=== PATIENT | male | born 1995 | race African-American/Black ===

== ENCOUNTER 2017-04-11 15:50 | Emergency (ER) | payer SELFPAY ==
[2017-04-11 16:00] VITALS: BP 129/80
[2017-04-11] MEDS ORDERED: TETRACAINE HCL 0.5% OPH SOLN 2 ML OS ONE (16:56)
[2017-04-11] MEDS ORDERED: TETRACAINE HCL 0.5% OPH SOLN 2 ML ONE (16:59)
--- NOTE | 2017-04-11 17:19 | ER Document Report ---
HPI - HPI Pain Level: 3 Notes: Patient is a 22-year-old male with the ED complaining of intermittent left eye redness for 3 weeks. Patient states that his eye became red again this morning. He does have some irritation to it, but declines any discharge or sharp pain. Patient denies a foreign body in the eye. No recent illness. He denies any changes in his vision. 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 Patient does wear contacts which has been leaving out with his eye is red. Patient states that he does have little to no photophobia. He is still able to move the eye around without any difficulties or pain. Denies any headache, fever, URI, ear pain, dizziness , nasal congestion/discharge, sore throat, chest pain, palpitations, syncope, cough, shortness breath, dyspnea, wheezing, abdominal pain, nausea/vomiting/ diarrhea, dysuria, urethral discharge, joint pains, or rash. Denies any daily meds. Denies any drug allergies. Denies any significant past medical history. - ROS Notes: REVIEW OF SYSTEMS: CONSTITUTIONAL : Denies fever, chills, or sweats. Denies recent illness. EENT: see hpi CARDIOVASCULAR: Denies chest pain. Denies palpitations or racing or irregular heart beat. Denies ankle edema. RESPIRATORY: Denies cough, cold, or chest congestion. Denies shortness of breath, difficulty breathing, or wheezing. GASTROINTESTINAL: Denies abdominal pain or distention. Denies nausea, vomiting , or diarrhea. Denies blood in vomitus, stools, or per rectum. Denies black, tarry stools. Denies constipation. GENITOURINARY: Denies difficulty urinating, painful urination, burning, frequency, blood in urine, or discharge. MUSCULOSKELETAL: Denies back or neck pain or stiffness. Denies joint pain or swelling. SKIN: Denies rash, lesions or sores. NEUROLOGICAL: Denies confusion or altered mental status. Denies passing out or loss of consciousness. Denies dizziness or lightheadedness. Denies headache. Denies weakness or paralysis or loss of use of either side. Denies problems with gait or speech. Denies sensory loss, numbness, or tingling. Denies seizures. PSYCHIATRIC: Denies anxiety or stress. Denies depression, suicidal ideation, or homicidal ideation. ALL OTHER SYSTEMS REVIEWED AND NEGATIVE. Dictation was performed using [employer] voice recognition software - [employer] Skin Color: Normal Past Medical History - Social History Smoking Status: Unknown if Ever Smoked Family History: Reviewed & Not Pertinent Patient has suicidal ideation: No Patient has homicidal ideation: No Renal/ Medical History: Denies: Hx Peritoneal Dialysis Vertical Provider Document - CONSTITUTIONAL Agree With Documented VS: Yes Notes: PHYSICAL EXAMINATION: GENERAL: Well-appearing, well-nourished and in no acute distress. HEAD: Atraumatic, normocephalic. EYES: Pupils equal round and reactive to light, extraocular movements intact, sclera anicteric, Left conjunctiva injected. No orbital cellulitis or discharge. No obvious abrasion/laceration/ulceration on flourescein/wood's lamp exam. Non-tender with movement. Eye irrigated and lid everted/wiped. No pupillary changes in shape. ENT: EAC clear b/l. TM's intact b/l without erythema, fluid, or perforation. Nares patent and without discharge. oropharynx clear without exudates. No tonsilar hypertrophy or erythema. Moist mucous membranes. No sinus tenderness. NECK: Normal range of motion, supple without lymphadenopathy LUNGS: Breath sounds clear to auscultation bilaterally and equal. No wheezes rales or rhonchi. HEART: Regular rate and rhythm without murmurs, rubs, gallops PSYCH: Normal mood, normal affect. SKIN: Warm, Dry, normal turgor, no rashes or lesions noted. - INFECTION CONTROL TRAVEL OUTSIDE OF THE [place] IN LAST 30 DAYS: No - RESPIRATORY O2 Sat by Pulse Oximetry: 96 Course - Re-evaluation Re-evalutation: 04/11/17 17:24 Patient is an afebrile, well-hydrated, 22-year-old male with suspected iritis to the left eye. Vitals are stable. PE otherwise unremarkable for any retained corneal related foreign body, deep space infection including orbital cellulitis or abscess, acute glaucoma, penetrating globe injury, retinal detachment, meningitis, viral/bacterial keratitis. Patient symptomatology matched closely with iritis along with physical exam. Iritis warrants an urgent consult ophthalmology in the next 1-2 days. I will send him home with Polytrim eyedrops along with ketorolac eyedrops to use as directed. Avoid use of contacts. Wash hands regularly and do not scratch the eye. Conservative measures otherwise for symptoms. Return to the ED with any worsening/ concerning symptoms as reviewed. Patient is in agreement. - Vital Signs Vital signs: Temp Pulse Resp BP Pulse Ox 97.5 F 55 L 16 129/80 H 96 04/11/17 15:59 04/11/17 15:59 04/11/17 15:59 04/11/17 15:59 04/11/17 15:59 Discharge - Discharge Clinical Impression: Iritis of left eye Condition: Stable Disposition: HOME, SELF-CARE Instructions: Eyedrop Use ([facility]) Additional Instructions: Wash hands regularly Do not scratch or touch your eyes Avoid use of contacts Use eyedrops as directed Tylenol/ibuprofen as needed It is important that you recheck with an paper slitter in the next 1-2 days. Return to the ED with any worsening vision, eye pain, headaches, fever, discharge, changes in vision, spots in vision, chest pain, palpitations, syncope , trouble breathing, shortness of breath, cough, abdominal pain, nausea/vomiting /diarrhea, urethral discharge, joint pains, or any other worsening/concerning symptoms otherwise as needed.Iritis The examination of your eye shows iritis, an inflammation of the iris of the eye. This is not an infection, but it can leave bands of scar tissue in the eye if untreated. The usual symptoms of iritis are deep eye pain, sensitivity to light, blurred vision, and headache. Cortisone drops and pupil-dilating medication are used to treat iritis. Follow-up examination by an paper slitter (physician video conference specialist) is often necessary. If there is a significant worsening of your condition -- such as severe pain, nausea and vomiting, or decreasing vision -- call the doctor or return for re-evaluation. Prescriptions: Ketorolac Tromethamine 0.45% [Acuvail 0.45% Oph Soln 0.4 ml/Dropperette] 1 drop OS QID PRN #1 bottle PRN Reason: Polymyxin B Sulf/Trimethoprim [Polytrim Eye Drops] 2 drop OD Q6H #10 ml Forms: Elevated Blood Pressure Referrals: CELSO LANE DO [ACTIVE STAFF] - Follow up as needed
== END 2017-04-11 17:50 | disposition home or self-care (01) ==
LOC: ER 15:50
DX: H20.9 Unspecified iridocyclitis (principal); H57.12 Ocular pain, left eye
CPT/HCPCS: 99283

== ENCOUNTER 2017-08-01 10:34 | Emergency (ER) | payer BC ==
[2017-08-01 10:39] VITALS: BP 132/80
[2017-08-01] MEDS ORDERED: KETOROLAC TROMETHAMINE 0.45% 4 DROP/0.4 ML DROPERETTE OD ONE (11:42)
[2017-08-01] MEDS ORDERED: BESIFLOXACIN HCL 0.6% OPH SUSP 5 ML BOTTLE OD ONE (11:42)
[2017-08-01] MEDS ORDERED: TETRACAINE HCL 0.5% OPH SOLN 2 ML OD ONE (11:42)
--- NOTE | 2017-08-01 11:43 | ER Document Report ---
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 Has contacts in. No hx ulcer. No drainage. Associated Symptoms: None Exacerbated by: Denies Relieved by: Denies Similar symptoms previously: Yes Recently seen / treated by doctor: No - ROS ROS below otherwise negative: Yes Systems Reviewed and Negative: Yes All other systems reviewed and negative - DERM Skin Color: Normal Past Medical History - General Information source: Patient - Social History Smoking Status: Never Smoker Frequency of alcohol use: None Drug Abuse: None Lives with: Family Family History: Reviewed & Not Pertinent Patient has suicidal ideation: No Patient has homicidal ideation: No - Medical History Medical History: Negative Renal/ Medical History: Denies: Hx Peritoneal Dialysis Surgical Hx: Negative Vertical Provider Document - CONSTITUTIONAL Agree With Documented VS: Yes Exam Limitations: No Limitations General Appearance: No Apparent Distress - INFECTION CONTROL TRAVEL OUTSIDE OF THE [place] IN LAST 30 DAYS: No - HEENT HEENT: Conjuctival Injection - right, no limbic flare, ant. chamber clear. tiny roung corneal defect with fluorescein uptake at 7 oclock, Normocephalic - NECK Neck: Supple - RESPIRATORY O2 Sat by Pulse Oximetry: 97 - NEURO Level of Consciousness: Awake, Alert, Appropriate Course - Vital Signs Vital signs: Temp Pulse Resp BP Pulse Ox 97.5 F 58 L 16 132/80 H 97 08/01/17 10:37 08/01/17 10:37 08/01/17 10:37 08/01/17 10:37 08/01/17 10:37 Discharge - Discharge Clinical Impression: corneal ulcer versus abrasion Condition: Good Disposition: HOME, SELF-CARE Instructions: Ketorolac Tromethamine Eye Drops ([facility]), Corneal Abrasion ([facility]), Quinolone Antibiotics ([facility]) Additional Instructions: no contact in right eye see dr helms at 2:15 pm today besivance 1 drop right eye every 8 hours acular 1 drop right eye every 8 hours Please complete the patient satisfaction survey if you get one, and return it.. If you do not receive a survey, then you can go to the [facility] website, [email or web address] and place your comments about your very good care. Thank you very much. It was a pleasure being your medical provider today. Forms: Return to Work Referrals: BEVERLY HELMS MD [ACTIVE STAFF] - 08/01/17
== END 2017-08-01 12:15 | disposition home or self-care (01) ==
LOC: ER 10:34
DX: H57.11 Ocular pain, right eye (principal); H57.8 Other specified disorders of eye and adnexa
CPT/HCPCS: 99283

== ENCOUNTER 2017-12-11 15:47 | Emergency (ER) | payer BC ==
[2017-12-11] MEDS ORDERED: OXYCODONE-ACETAMINOPHEN 5-325 MG TABLET PO ONE (17:06)
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
[2017-12-11] MEDS ORDERED: HYDROMORPHONE HCL INJ/PF 2 MG/ML AMPULE IM ONE (18:05)
[2017-12-11 18:32] VITALS: BP 129/77
== END 2017-12-11 18:42 | disposition home or self-care (01) ==
LOC: ER 15:47
DX: S02.80XA Fracture of other specified skull and facial bones, unspecified side, initial encounter for closed fracture (principal); Y04.2XXA Assault by strike against or bumped into by another person, initial encounter
CPT/HCPCS: 99283; 96372; 70486; J1170

== ENCOUNTER 2017-12-11 19:12 | Emergency (ER) | payer BC ==
[2017-12-11] MEDS ORDERED: ONDANSETRON 4 MG TAB.RAPDIS PO ONE (20:27)
[2017-12-11] MEDS ORDERED: ONDANSETRON ODT 4 MG TAB (6 TAB/ER DISP) PO PRN ×2 (20:27→21:41)
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
[2017-12-11 22:04] VITALS: BP 139/72
== END 2017-12-11 22:05 | disposition home or self-care (01) ==
LOC: ER 19:12
DX: S09.90XA Unspecified injury of head, initial encounter (principal); R11.2 Nausea with vomiting, unspecified; X58.XXXA Exposure to other specified factors, initial encounter
CPT/HCPCS: 99284; 70450; S0119

== ENCOUNTER 2018-05-27 15:01 | Emergency (ER) | payer BC ==
[2018-05-27 15:08] VITALS: BP 141/90
[2018-05-27] MEDS ORDERED: HYDROCODONE/ACETAMINOPHEN 5-325 MG TABLET PO ONE (15:30)
[2018-05-27] MEDS ORDERED: PENICILLIN V POTASSIUM 500 MG TABLET PO ONE (15:30)
--- NOTE | 2018-05-27 15:34 | ER Document Report ---
HPI - HPI Patient complains to provider of: Dental infection Onset: Last week Onset/Duration: Worse Quality of pain: Achy Pain Level: 3 Context: Patient complains of dental pain for the past week that worsened over the past 3 days. Patient denies any fever or vomiting. Associated Symptoms: Other - Dental pain. denies: Fever Exacerbated by: Denies Relieved by: Denies Similar symptoms previously: Yes Recently seen / treated by doctor: No - ROS ROS below otherwise negative: Yes Systems Reviewed and Negative: Yes All other systems reviewed and negative - CONSTITUTIONAL Constitutional: DENIES: Fever - GASTROINTESTINAL Gastrointestinal: DENIES: Nausea, Patient vomiting - DERM Skin Color: Normal Skin Problems: None Past Medical History - General Information source: Patient - Social History Smoking Status: Never Smoker Frequency of alcohol use: None Drug Abuse: None Occupation: [employer] Lives with: Family Family History: Reviewed & Not Pertinent - Medical History Medical History: Negative Renal/ Medical History: Denies: Hx Peritoneal Dialysis Surgical Hx: Negative - Immunizations Immunizations up to date: Yes Hx Diphtheria, Pertussis, Tetanus Vaccination: Yes Vertical Provider Document - CONSTITUTIONAL Agree With Documented VS: Yes Exam Limitations: No Limitations General Appearance: WD/WN, No Apparent Distress - INFECTION CONTROL TRAVEL OUTSIDE OF THE [place] IN LAST 30 DAYS: No - HEENT HEENT: Atraumatic, Normocephalic Mouth Diagram: 1 - Dental decay, small abscess to gingiva - NECK Neck: Normal Inspection, Supple. negative: Lymphadenopathy-Left, Lymphadenopathy-Right - RESPIRATORY Respiratory: No Respiratory Distress - MUSCULOSKELETAL/EXTREMETIES Musculoskeletal/Extremeties: MAEW - NEURO Level of Consciousness: Awake, Alert, Appropriate Motor/Sensory: No Motor Deficit - DERM Integumentary: Warm, Dry Course - Vital Signs Vital signs: Temp Pulse Resp BP Pulse Ox 98.4 F 52 L 16 141/90 H 99 05/27/18 15:07 05/27/18 15:07 05/27/18 15:07 05/27/18 15:07 05/27/18 15:07 Procedures - Incision and Drainage Right Type: Simple Incision Method: Incision made with needle Amount/type of drainage: Small amount of purulent drainage Mouth/Teeth picture: 1 - Abscess Discharge - Discharge Clinical Impression: Dental abscess Condition: Stable Disposition: HOME, SELF-CARE Instructions: Dentist, Dental Infection or Abscess ([facility]), Penicillin V K ([facility]) Additional Instructions: Return immediately for any new or worsening symptoms Followup with your primary care provider, call tomorrow to make a followup appointment Follow-up with a dental care for further evaluation Prescriptions: Naproxen [Naprosyn 250 Nmg Tablet] 1 tab PO BID #14 tablet Penicillin V Potassium [Penicillin Vk 500 mg Tablet] 500 mg PO BID #20 tablet Tramadol HCl [Ultram 50 mg Tablet] 50 mg PO ASDIR PRN #12 tablet PRN Reason: Referrals: [facility] [Provider Group] - Follow up as needed
== END 2018-05-27 16:05 | disposition home or self-care (01) ==
LOC: ER 15:01
DX: K04.7 Periapical abscess without sinus (principal)
CPT/HCPCS: 99283